=== PATIENT | female | born 1975 | race Caucasian/White ===

== ENCOUNTER 2018-01-01 15:01 | Emergency (ER) | payer OTHER ==
[~2018-01-01] VITALS: Ht 160 cm; Wt 72.7 kg
[2018-01-01] MEDS ORDERED: LEXAPRO 10MG10 MG PO (15:27)
[2018-01-01] MEDS ORDERED: TYLENOL 325MG325 MG PO (15:28)
[2018-01-01] MEDS ORDERED: XANAX0.25 M1 PO (15:28)
[2018-01-01] MEDS ORDERED: CYCLOBENZAPRINE10 M1 PO (17:01)
[2018-01-01 17:28] VITALS: BP 120/74
== END 2018-01-01 17:28 | disposition home or self-care (01) ==
LOC: ED 15:01
DX: M54.2 Cervicalgia (principal); M62.830 Muscle spasm of back; M54.9 Dorsalgia, unspecified; R07.9 Chest pain, unspecified; V47.0XXA Car driver injured in collision with fixed or stationary object in nontraffic accident, initial encounter; Y92.410 Unspecified street and highway as the place of occurrence of the external cause; Z79.899 Other long term (current) drug therapy
CPT/HCPCS: J1885; L0172

== ENCOUNTER → 2020-02-23 | Outpatient (CLI) | payer OTHER ==
[~2020-02-23] MED LIST: CYCLOBENZAPRINE10 M1 PO; LEXAPRO 10MG10 MG PO; TYLENOL 325MG325 MG PO; XANAX0.25 M1 PO
== END ==
LOC: RAD 16:50
DX: M54.6 Pain in thoracic spine (principal); N20.0 Calculus of kidney

== ENCOUNTER 2024-03-12 07:01 | Emergency (ER) | payer OTHER ==
[~2024-03-12] VITALS: Ht 160 cm; Wt 93.2 kg
[~2024-03-12 07:01] MED LIST changes: +ESTRACE 1MG1 MG/TAB PO
[2024-03-12] MEDS ORDERED: NATURE'S BLEND1 T11 (07:49)
[2024-03-12 08:20] VITALS: BP 106/69
== END 2024-03-12 08:29 | disposition home or self-care (01) ==
LOC: ED 07:01
DX: S80.01XA Contusion of right knee, initial encounter (principal); M25.532 Pain in left wrist; M25.531 Pain in right wrist; W01.0XXA Fall on same level from slipping, tripping and stumbling without subsequent striking against object, initial encounter; Y92.009 Unspecified place in unspecified non-institutional (private) residence as the place of occurrence of the external cause

== ENCOUNTER → 2024-04-01 | Outpatient (CLI) | payer OTHER ==
[~2024-04-01] MED LIST changes: +NATURE'S BLEND1 T11
== END ==
LOC: LAB 09:02
DX: K21.9 Gastro-esophageal reflux disease without esophagitis (principal)